=== PATIENT | female | born 1970 ===

== ENCOUNTER 2019-05-21 16:13 | Emergency (ER) | payer OTHER ==
[~2019-05-21] VITALS: Ht 170.2 cm; Wt 77.1 kg
== END 2019-05-21 19:29 | disposition home or self-care (01) ==
LOC: ER 16:13
DX: S93.492A Sprain of other ligament of left ankle, initial encounter (principal); W18.39XA Other fall on same level, initial encounter; Y93.89 Activity, other specified; Y92.89 Other specified places as the place of occurrence of the external cause; Y99.8 Other external cause status

== ENCOUNTER 2025-06-19 09:28 | Outpatient (CLI) | payer OTHER | END 2025-06-19 14:17 | disposition home or self-care (01) | LOC: RAD 09:28 | PROVIDERS: ATTEND Physical Medicine & Rehabilitation | DX: M54.2 Cervicalgia (principal) ==

== ENCOUNTER 2025-06-22 10:09 | Outpatient (CLI) | payer OTHER | END 2025-06-22 10:27 | disposition home or self-care (01) | LOC: MRI 10:09 | PROVIDERS: ATTEND Physical Medicine & Rehabilitation | DX: M54.12 Radiculopathy, cervical region (principal) | CPT/HCPCS: 72141 ==